=== PATIENT | male | born 1950 | race Caucasian/White ===

== ENCOUNTER 2022-06-27 11:52 | Outpatient (CLI) | payer MEDICARE, SELFPAY ==
--- NOTE | 2022-06-27 | USCV_ITS ---
Williams Kelley Age: 71 Gender: M : 1950 Exam Date: 06/27/2022 13:23 Ordering Phys: Jamee Magallon Technologist: [email or web address] [place] [facility] [place]: SHORTNESS OF BREATH AND CHEST PAIN BP: 158 / 80 HR: 65 Rhythm: Sinus Technical Quality: Adequate MEASUREMENTS (Male / Female) Normal Values 2D ECHO LVOT Diameter 2.0 cm LV Ejection Fraction MOD 2C 66.0 % LV Ejection Fraction 2C AL 66.2 % LA Diameter 3.3 cm LA Width 3.0 cm LA Height 5.5 cm RA Width 3.3 cm RA Height 4.9 cm Aorta at Sinotubular Diameter 2.4 cm IVC Diameter 1.8 cm M-MODE Aortic Annulus Diameter 3.5 cm LA Ao Ratio MM 0.8 MV E Point Septal Separation 1.1 cm DOPPLER AV Peak Velocity 175.3 cm/s LVOT Peak Velocity 108.0 cm/s AV Area Cont Eq vti 2.0 cm squared AV Area Cont Eq pk 2.0 cm squared MV Peak Velocity 135.0 cm/s MV Area PHT 3.0 cm squared Mitral E to A Ratio 1.1 MV E' Velocity 58.2 cm/s Mitral E to MV E' Ratio 14.6 Mitral E to LV E' Lateral Ratio 14.1 Mitral E to LV E' Septal Ratio 15.1 TR Peak Velocity 241.3 cm/s TR Peak Gradient 23.3 mmHg TR Mean Velocity 194.2 cm/s TR Mean Gradient 16.1 mmHg TR Velocity Time Integral 75.3 cm TV Peak E Velocity 49.0 cm/s Right Atrial Pressure 3.0 mmHg Pulmonary Artery Systolic Pressu 26.3 mmHg PV Peak Velocity 124.0 cm/s RV Acceleration Time 0.1 s RV Ejection Time 0.3 s RV AcT/ET 0.3 FINDINGS Left Ventricle Normal left ventricular size and systolic function, EF 60 %. No regional wall motion abnormalities. Mild left ventricular hypertrophy. Grade II/IV diastolic dysfunction, moderately elevated filling pressures. Right Ventricle The right ventricle is normal in size and function. Right Atrium The right atrium is normal in size. Left Atrium Mildly increased left atrial size. Mitral Valve Moderate mitral annular calcification. Aortic Valve Thickened aortic valve. Tricuspid Valve No gross abnormalities noted Pulmonic Valve No gross abnormalities noted Pericardium Normal pericardium without effusion. Aorta Normal ascending aorta dimension. IVC Mildly dilated IVC. CONCLUSIONS Normal left ventricular size and systolic function, EF 60 %. No regional wall motion abnormalities. Mild left ventricular hypertrophy. Grade II/IV diastolic dysfunction, moderately elevated filling pressures. Mildly increased left atrial size. Moderate mitral annular calcification. Thickened aortic valve. No significant stenotic or regurgitant lesions There is no pericardial effusion. There are no intracardiac masses. No similar previous studies are available for comparison Dr Ernesto Paige MD [facility] (Electronically Signed) Final Date: 27 June 2022 23:29 S
== END 2022-06-27 11:53 | disposition home or self-care (01) ==
LOC: RAD 11:57
PROVIDERS: PCP Nurse Practitioner Family; Visit Provider Nurse Practitioner Family
DX: R06.02 Shortness of breath (principal); R07.9 Chest pain, unspecified; I08.0 Rheumatic disorders of both mitral and aortic valves
CPT/HCPCS: 93306

== ENCOUNTER → 2025-07-02 09:06 | Outpatient (BNVA) | payer MEDICARE, MEDICAID, SELFPAY | PROVIDERS: PCP Nurse Practitioner Family; Visit Provider Nurse Practitioner Family | DX: L08.9 Local infection of the skin and subcutaneous tissue, unspecified (principal); R20.9 Unspecified disturbances of skin sensation; L29.89 Other pruritus; L28.0 Lichen simplex chronicus; L73.8 Other specified follicular disorders; F42.4 Excoriation (skin-picking) disorder; B35.1 Tinea unguium; I78.8 Other diseases of capillaries; D18.01 Hemangioma of skin and subcutaneous tissue | CPT/HCPCS: 11104; 99204 ==

== ENCOUNTER → 2025-07-13 08:51 | Outpatient (BNVA) | payer MEDICARE, MEDICAID, SELFPAY | PROVIDERS: PCP Nurse Practitioner Family; Visit Provider Nurse Practitioner Family | DX: B35.3 Tinea pedis (principal); B35.2 Tinea manuum | CPT/HCPCS: 99214 ==

== ENCOUNTER → 2025-09-07 08:48 | Outpatient (BNVA) | payer MEDICARE, MEDICAID, SELFPAY | PROVIDERS: PCP Nurse Practitioner Family; Visit Provider Nurse Practitioner Family | DX: B35.3 Tinea pedis (principal); I78.1 Nevus, non-neoplastic; L81.4 Other melanin hyperpigmentation; L57.8 Other skin changes due to chronic exposure to nonionizing radiation | CPT/HCPCS: 99214 ==